=== PATIENT | female | born 1950 | race Caucasian/White ===

== ENCOUNTER 2020-07-02 12:31 | Outpatient (NON) | payer MEDICARE, OTHER, SELFPAY ==
[2020-07-02 23:21] LABS: SARS-CoV-2 RNA PCR Negative
== END 2020-07-02 12:32 ==
LOC: ANHCOVIDDT 12:36
PROVIDERS: Visit Provider Family Medicine
DX: R50.9 Fever, unspecified (principal); Z20.828 Contact with and (suspected) exposure to other viral communicable diseases
CPT/HCPCS: 87635; C9803; U0003

== ENCOUNTER 2020-07-10 07:00 | Outpatient (NON) | payer MEDICARE, OTHER, SELFPAY ==
[2020-07-11 01:24] LABS: SARS-CoV-2 RNA PCR Negative
== END 2020-07-10 07:01 ==
PROVIDERS: Visit Provider Family Medicine
DX: R05 Cough (principal); R50.9 Fever, unspecified; Z20.828 Contact with and (suspected) exposure to other viral communicable diseases
CPT/HCPCS: 87635; C9803; U0003

== ENCOUNTER 2020-12-22 10:30 | Outpatient (CLI) | payer MEDICARE, SELFPAY ==
--- NOTE | ~2020-12-22 | MM_ITS ---
EXAMINATION: MM screening [facility] BI w irene HISTORY: Screening TECHNIQUE: Craniocaudal and mediolateral oblique 3-D tomosynthesis images were obtained and synthetic 2-D images were generated. CAD analysis was submitted and interpreted. COMPARISON: Comparison to multiple prior studies sequentially, with oldest reviewed study dated 09/2012. BREAST PARENCHYMAL COMPOSITION: There are scattered areas of fibroglandular density. FINDINGS: There are benign bilateral breast calcifications. There is no evidence of suspicious mass, calcification, or architectural distortion to suggest malignancy in either breast. There has been no suspicious interval change. IMPRESSION: 1. No mammographic evidence of malignancy. 2. Recommend routine screening mammography in one year. BI-RADS Category 2: Benign finding(s). Reviewed, dictated and finalized at location A.
== END 2020-12-22 10:31 | disposition home or self-care (01) ==
PROVIDERS: PCP Family Medicine; Visit Provider Family Medicine
DX: Z12.31 Encounter for screening mammogram for malignant neoplasm of breast (principal)
CPT/HCPCS: 77063; 77067

== ENCOUNTER → 2021-03-15 02:52 | Outpatient (CLI) | payer MEDICARE, SELFPAY ==
[2021-03-15 19:42] LABS: SARS-CoV-2 RNA PCR Negative
== END ==
PROVIDERS: PCP Family Medicine; Visit Provider Physician Assistant
DX: R68.89 Other general symptoms and signs (principal); Z20.822 Contact with and (suspected) exposure to COVID-19
CPT/HCPCS: C9803; U0003; U0005

== ENCOUNTER 2022-03-01 13:57 | Outpatient (CLI) | payer MEDICARE, SELFPAY ==
--- NOTE | ~2022-03-01 | CT_ITS ---
EXAMINATION: CT abdomen pelvis wo con DATE: 03/01/2022 14:22 INDICATION: Low abdominal pain/discomfort, diarrhea TECHNIQUE: Computed tomography (CT) of the abdomen and pelvis was performed without intravenous contr ast. Automated exposure control and iterative reconstruction technique were employed. Exam dose: 403 .80 mGy-cm total exam DLP. COMPARISON: 10/08/2006 CT abdomen FINDINGS: The lung bases are clear. Normal heart size. No pericardial or pleural effusion. Very small sliding hiatal hernia. There are several hepatic cysts measuring up to approximately 2.1 cm maximal dimension. The gallbladd er is present. No gallbladder wall thickening or pericholecystic fluid or fat stranding. No bile duct or pancreatic duct dilatation. No pancreatic mass lesion or calcification. Normal splenic size. Normal morphology of the adrenal glands. Approximately 1.4 cm upper pole left renal cyst. No urinary tract calculus or hydroureteronephrosis. The urinary bladder is relatively evacuated and unremarkable. Small retroverted uterus. No adnexal ma ss lesion. Normal appendix. Diverticulosis of the colon, primarily on the left colon can with minimal involvement of the right co chapo. No CT evidence of diverticulitis. No bowel obstruction, bowel wall thickening, pneumatosis or intraperitoneal free air. Normal caliber of the abdominal aorta. No intraperitoneal or retroperitoneal or pelvic mass lesion or adenopathy or ascites. Small fat-containing umbilical hernia. No suspicious osteolytic or osteoblastic lesions are noted. There is grade 1 anterolisthesis at L4-5. IMPRESSION: Hepatic cysts Left renal 1.4 cm cyst Normal appendix Diverticulosis of the colon; no evidence of diverticulitis Reviewed, dictated and finalized at Location A. Reviewed, dictated and finalized at location B.
== END 2022-03-01 13:58 | disposition home or self-care (01) ==
PROVIDERS: PCP Family Medicine; Visit Provider Family Medicine
DX: R10.9 Unspecified abdominal pain (principal); K76.89 Other specified diseases of liver; N28.1 Cyst of kidney, acquired; K57.90 Diverticulosis of intestine, part unspecified, without perforation or abscess without bleeding
CPT/HCPCS: 74176

== ENCOUNTER 2022-08-17 01:56 | Day surgery (SDC) | payer MEDICARE, SELFPAY ==
[2022-08-07 08:39] VITALS: BMI 27.8
[2022-08-17 10:04] VITALS: BP 141/63; PULSE 77; RESP 18; TEMP 36.3; O2SAT 98; BMI 27.6
--- NOTE | 2022-08-17 10:26 | P.PNAN_ITS ---
Anes - Initial Pre Proc Eval Procedure: Operation Date: 08/17/22 11:00 Proposed Procedures p Colonoscopy - Hleder Gallagher MD Date/Time: 08/17/22 10:26 Surgeon: Helder Gallagher MD Pre Op Diagnosis: diarrhea Patient Data Age: 72 Gender: F Height: 1.63 m Weight: 73.1 kg Last Vital Signs Temp 97.4 F L 08/17/22 10:04 Pulse 77 08/17/22 10:04 Resp 18 08/17/22 10:04 BP 141/63 H 08/17/22 10:04 Pulse Ox 98 08/17/22 10:04 O2 Del Method Room Air 08/17/22 10:04 Allergies Allergy/AdvReac Type Severity Reaction Status Date / Time acetaminophen AdvReac Headache Verified 08/17/22 10:15 [From Tylenol-Codeine #3] codeine AdvReac Headache Verified 08/17/22 10:15 [From Tylenol-Codeine #3] Home Medications Medication Instructions Recorded Confirmed Type acyclovir 400 mg tablet 400 mg PO DAILY PRN Cold Sores 07/10/22 08/17/22 History amlodipine 5 mg tablet 5 mg PO DAILY 07/10/22 08/17/22 History eluxadoline 75 mg tablet (Viberzi) 75 mg PO BID 07/10/22 08/17/22 History enalapril maleate 20 mg tablet 20 mg PO DAILY 07/10/22 08/17/22 History lansoprazole 15 mg capsule,delayed 15 mg PO DAILY 07/10/22 08/17/22 History release rosuvastatin 10 mg tablet 10 mg PO DAILY 07/10/22 08/17/22 History triamcinolone acetonide 55 mcg 1 spray intranasal DAILY 07/10/22 08/17/22 History nasal spray aerosol (Nasacort Allergy) Patient hx anesthesia problems: none Family hx anesthesia problems: none Results Review: All pre-operative results and documents have been reviewed as part of the pre- operative evaluation. FOR[facility]LY [facility] Past Medical History Medical History Chronic sinusitis Hx of uterine prolapse Hyperlipidemia Hypertension Surgical History Surgical History Hx of tubal ligation Family History Family History Mother Family history of malignant neoplasm of breast in first degree relative Social History Social History Smoking status: Never smoker Alcohol intake: never Substance use: never Substance use type: does not use Living arrangements: alone Spiritual care concerns: No Anes - Eval Final PreProcedure Day of Procedure 08/17/22 10:26 Patient weight: normal Heart: regular rate and rhythm Lungs: clear to auscultation Airway: Mallampati scale class II Neurological: alert and oriented Last oral intake: >/= 8 hours ASA classification: II Emergent: no Anesthetic plan: proceed Anesthesia type and monitoring: general GIVS and standard monitoring Results Review: All pre-operative results and documents have been reviewed as part of the pre- operative evaluation. Informed Consent: The patient's anesthetic plan and its attendant risks and benefits were discussed with the patient/family/POA. Questions were solicited and answers provided to the satisfaction of the patient/family/POA.
[2022-08-17] MEDS: LACTATED RINGERS 1,000 ML 150 ML IV CONT (10:28)
--- NOTE | 2022-08-17 10:30 | PM.HPGS ---
History of Present Illness History of Present Illness Consent: Risks, benefits, and alternatives have been discussed and questions answered. Patient agrees to proceed with procedure. Chief complaint: diarrhea Narrative: Raegan Wiseman is a 72 year old female Who ?has been having a great deal of diarrhea.? She had stool cultures done which were negative.? Prior to that she had had cataract surgery and each cataract required antibiotics for 3 weeks.? She states that she was negative for C diff. That was in January.? 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 She is on Viberzi, 75 mg twice a day and also takes Imodium, up to 4 times a day.? Her bowel movements have decreased in frequency but only because she continues to take these medications she in fact was recently prescribed dicyclomine, 10 mg b.i.d. she cannot tell if that helped.? She was also given amitriptyline, 25 mg but only took a few days.? Review of Systems Review of Systems: All systems reviewed & are unremarkable except as noted in HPI and below PMFSH Past Medical History Medical History Chronic sinusitis Hx of uterine prolapse Hyperlipidemia Hypertension Surgical History Surgical History Hx of tubal ligation Family History Family History Mother Family history of malignant neoplasm of breast in first degree relative Social History Social History Smoking status: Never smoker Alcohol intake: never Substance use: never Substance use type: does not use Living arrangements: alone Spiritual care concerns: No Meds Home Medications and Allergies Home Medications Medication Instructions Recorded Confirmed Type acyclovir 400 mg tablet 400 mg PO DAILY PRN Cold Sores 07/10/22 08/17/22 History amlodipine 5 mg tablet 5 mg PO DAILY 07/10/22 08/17/22 History eluxadoline 75 mg tablet (Viberzi) 75 mg PO BID 07/10/22 08/17/22 History enalapril maleate 20 mg tablet 20 mg PO DAILY 07/10/22 08/17/22 History lansoprazole 15 mg capsule,delayed 15 mg PO DAILY 07/10/22 08/17/22 History release rosuvastatin 10 mg tablet 10 mg PO DAILY 07/10/22 08/17/22 History triamcinolone acetonide 55 mcg 1 spray intranasal DAILY 07/10/22 08/17/22 History nasal spray aerosol (Nasacort Allergy) Allergies Allergy/AdvReac Type Severity Reaction Status Date / Time acetaminophen AdvReac Headache Verified 08/17/22 10:15 [From Tylenol-Codeine #3] codeine AdvReac Headache Verified 08/17/22 10:15 [From Tylenol-Codeine #3] Vital Signs Vital Signs - 24 hr 08/17/22 10:04 Temperature 36.3 C L Pulse Rate 77 Respiratory Rate 18 Blood Pressure 141/63 H Pulse Oximetry 98 Oxygen Delivery Room Air Exam Const: General: alert Orientation/consciousness: patient oriented x3 Resp: Auscultation: clear to auscultation bilaterally Cardio: Rate: regular rate Rhythm: regular rhythm GI: GI Palp: Yes Soft to palpation and No Tenderness to palpation present (GI) Neuro: General: patient oriented x3 Assessment and Plan Assessment and plan (1) Chronic diarrhea: Code(s): K52.9 - Noninfective gastroenteritis and colitis, unspecified Status: Acute Assessment and Plan: Colonoscopy with possible biopsy or polypectomy or cautery or injection of substances.
[2022-08-17 11:19] VITALS: BP 98/54; PULSE 66; RESP 17; O2SAT 97
[2022-08-17 11:29] VITALS: BP 104/55; PULSE 66; RESP 18; O2SAT 95
[2022-08-17 11:39] VITALS: BP 130/70; PULSE 60; RESP 16; O2SAT 100
== END 2022-08-17 11:47 | disposition home or self-care (01) ==
PROVIDERS: PCP Family Medicine; Visit Provider Internal Medicine Gastroenterology
PROC: 0DJD8ZZ Inspection of Lower Intestinal Tract, Via Natural or Artificial Opening Endoscopic (ICD-10-PCS; CPT 45378; principal; 2022-08-17 11:00)
DX: K52.831 Collagenous colitis (principal); K64.8 Other hemorrhoids; K57.30 Diverticulosis of large intestine without perforation or abscess without bleeding; I10 Essential (primary) hypertension; E78.5 Hyperlipidemia, unspecified
CPT/HCPCS: 45380; 88305; J2704; J7120

== ENCOUNTER 2023-10-16 14:10 | Outpatient (CLI) | payer MEDICARE, SELFPAY ==
--- NOTE | ~2023-10-16 | MM_ITS ---
EXAMINATION: MM screening [facility] BI w irene HISTORY: Screening mammogram TECHNIQUE: Craniocaudal and mediolateral oblique 3-D tomosynthesis images were obtained and synthetic 2-D images were generated. CAD analysis was submitted and interpreted. COMPARISON: 12/22/2020, 03/11/2017 bilateral screening mammogram examinations BREAST PARENCHYMAL COMPOSITION: There are scattered areas of fibroglandular density. FINDINGS: Multiple bilateral benign calcifications. There is no evidence of suspicious mass, calcific ation, or architectural distortion to suggest malignancy in either breast. There has been no suspicio us interval change. IMPRESSION: 1. No mammographic evidence of malignancy. 2. Recommend routine screening mammography in one year. BI-RADS Category 2: Benign finding(s). Reviewed, dictated and finalized at location A.
== END 2023-10-16 14:11 | disposition home or self-care (01) ==
PROVIDERS: PCP Family Medicine; Visit Provider Physician Assistant
DX: Z12.31 Encounter for screening mammogram for malignant neoplasm of breast (principal)
CPT/HCPCS: 77063; 77067

== ENCOUNTER 2025-01-27 09:25 | Emergency (ER) | payer MEDICARE, SELFPAY ==
--- NOTE | ~2025-01-27 | XR_ITS ---
EXAM/ PROCEDURE: [id number] - 01/27/2025 9:53 CDT HISTORY: 74 years old Female with LT ant/upper rib pain jumped on by a dog 4x days ago nonsmok COMPARISON: None available TECHNIQUE: 5 view(s) FINDINGS/ IMPRESSION: There are no fractures or dislocations.Joint space narrowing, subchondral sclerosis, subchondral cyst formation and osteophyte formation, compatible with mild osteoarthritis. S-shaped curvature of the s pine is seen. Atherosclerotic calcifications are seen. Reviewed, dictated and finalized at location A.
--- OUTSIDE RECORDS SUMMARY | 2025-01-27 09:30 | XMS_ITS | Clinical Summary ---
Author Organization [facility] Address [address] [place] [id number] Care Team Providers Care Spa Technician Name Role Phone Unavailable Primary Care Provider Unavailabl e Social History Tobacco Use Types Packs/Day Years Used Date Smoking Tobacco: Never Assessed Comments Unknown Sex and Gender Information Value Date Recorded Sex Assigned at Not on file Legal Sex Female 8:19 PM CDT Gender Identity Not on file Sexual Orientation Not on file Plan of Treatment Health Maintenance Due Date Last Done Comments Hepatitis C 1966 DTaP, Tdap and Td Vaccines ( 1 - Tdap) 1967 Pneumococcal Vaccine: 50+ Ye ars (1 of 1 - PCV) 1998 Zoster Vaccines (1 of 2) 1998 Dexa Scan (General) 2013 RSV Immunization or 60+ Years (1 - 1-dose 75+ series) 2023 COVID-19 Vaccine ( - 2023-2 5 season) 2024 Meningococcal B Vaccine Aged Out No l onger eligible based on patient's age to complete this topic Meningococcal Vaccine Aged Out No chapo ludy eligible based on patient's age to complete this topic RSV Immunizations Under 20 Months Aged Out No longer eligible based on patient's age to complete this topic
[2025-01-27 09:34] VITALS: BP 148/67; PULSE 93; RESP 16; TEMP 36.6; O2SAT 100
--- NOTE | 2025-01-27 09:53 | ED.GENADULT ---
HPI - General Adult General Chief complaint: Extremity Injury, Upper Stated complaint: LT Shoulder Pain History of Present Illness HPI narrative: Raegan Wiseman is a 74 y/o female who presents with reports of being jumped on by a family members dog up to her upper left chest area 4 days ago. SHe states it hurt when it happened but she thought it was getting better but the last couple days feels more pain to the left upper and under arm area. Pain reproducible with palpation and movement. No SOB Related Data Home Medications ?Medication ?Instructions ?Recorded ?Confirmed ?Last Taken ?Type calcium carbonate (Calcium 500) 500 mg PO DAILY 03/27/23 09/22/24 Unknown History tirzepatide 2.5 mg/0.5 mL 2.5 mg subcut WEEKLY 03/17/24 01/27/25 Unknown History subcutaneous pen injector (Mounjaro) triamcinolone acetonide 55 mcg 2 spray intranasal DAILY 03/17/24 09/22/24 Unknown History nasal spray aerosol (Nasacort Allergy) esomeprazole magnesium 20 mg 20 mg PO DAILY 09/22/24 09/22/24 Unknown History capsule,delayed release (Nexium 24HR) tirzepatide (weight loss) 5 mg/0.5 mg subcut 01/27/25 Unknown History mL subcutaneous pen injector (Zepbound) Allergies Allergy/AdvReac Type Severity Reaction Status Date / Time codeine (From AdvReac Headache Verified 01/27/25 10:00 Tylenol-Codeine #3) Review of Systems Review of Systems: All systems reviewed & are unremarkable except as noted in HPI and below PMFSH Past Medical History Medical History Generalized anxiety disorder History of herpes labialis Pure hypercholesterolemia, unspecified CC (collagenous colitis) Weight loss Hx of uterine prolapse Chronic sinusitis Hypertension Surgical History Surgical History History of hysterectomy 2014 History of bladder surgery 2014 Hx of tubal ligation 1979 Family History Family History Mother Family history of malignant neoplasm of breast in first degree relative Father Lung cancer Sibling COPD (chronic obstructive pulmonary disease) Social History Social History Smoking status: Never smoker Alcohol intake: never Substance use: never Substance use type: does not use Do You Feel Safe in your Home?: Yes Lack of Transportation: No Lack of Food: Never True Current Housing: I Have Housing Concerned About Future Housing: No Difficulty Paying Gas/Electric Bills: No Difficulty Paying for Meds: No Currently Unemployed: No Education: High School Diploma/GED Difficulty w/ Childcare or Family Care: No Living arrangements: alone Occupation/Education: retired Gender identity (if verbalized by the patient): Female Sexual Orientation (if Verbalized by the Patient): Straight or Heterosexual Spiritual care concerns: No Exam Narrative: GENERAL: Well-appearing, well-nourished, and in no acute distress. HEAD: Normocephalic, atraumatic. EYES: PERRLA and EOMI. ENT: Nares clear, no rhinorrhea or epistaxis. Mucous membranes moist. Oropharynx without tonsillar hypertrophy exudate or other lesions. NECK: Supple. No adenopathy or masses. No carotid bruits or JVD CHEST: Clear to auscultation. No respiratory distress. No wheezes rales or rhonchi- Left sided mild ecchymosis to the upper left chest wall area HEART: Regular rate and rhythm. No murmur heard. Normal peripheral pulses. ABDOMEN: Soft, nontender, nondistended, normal active bowel sounds. EXTREMITIES: Normal range of motion. No edema. SKIN: Warm, dry, no rash. NEURO: No focal deficits. Alert and oriented x3. PSYCH: Normal mood and affect. Course Course Level of Care: Express Care Visit Vital Signs Vital signs: Vital Signs Temperature 36.6 C 01/27/25 09:34 Pulse Rate 93 01/27/25 09:34 Respiratory Rate 16 01/27/25 09:34 Blood Pressure 148/67 H 01/27/25 09:34 Pulse Oximetry 100 01/27/25 09:34 Oxygen Delivery Room Air 01/27/25 09:34 Temperature 36.6 C 01/27/25 09:34 Pulse Rate 93 01/27/25 09:34 Respiratory Rate 16 01/27/25 09:34 Blood Pressure 148/67 H 01/27/25 09:34 Pulse Oximetry 100 01/27/25 09:34 Oxygen Delivery Room Air 01/27/25 09:34 Medical Decision Making MDM Narrative Medical decision making narrative: 74 y/o status post 4 days of having a dog jump up on her hitting her left upper chest. Comes in with continued pain to area + ecchymosis to the upper left chest wall Pain reproducible with palpation and movement Lung sounds clear throughout, RR even unlabored Rates pain at a 4/10 concern for : rib fx/ lung contusion Plan to check an XR XR : There are no fractures or dislocations. Plan to d/c with continued BECK therapy may continue Motrin follow up with PCP in 5-7 days to ensure improving Strict return precaution to go to the ER for any worsening or continued symptoms Medical Records Medical records reviewed: Yes I reviewed the external patient's medical records. Vital Signs Vital Signs: Vital Signs Temperature 36.6 C 01/27/25 09:34 Pulse Rate 93 01/27/25 09:34 Respiratory Rate 16 01/27/25 09:34 Blood Pressure 148/67 H 01/27/25 09:34 Pulse Oximetry 100 01/27/25 09:34 Oxygen Delivery Room Air 01/27/25 09:34 Temperature 36.6 C 01/27/25 09:34 Pulse Rate 93 01/27/25 09:34 Respiratory Rate 16 01/27/25 09:34 Blood Pressure 148/67 H 01/27/25 09:34 Pulse Oximetry 100 01/27/25 09:34 Oxygen Delivery Room Air 01/27/25 09:34 vitals reviewed by me Discharge Plan Discharge Clinical Impression: Chest wall contusion Qualifiers: Encounter type: initial encounter Laterality: left Qualified Code(s): S20.212A - Contusion of left front wall of thorax, initial encounter Patient Disposition: Home Condition: Stable Instructions: Antibiotic Form, P.R.I.C.E. Treatment (ED) Additional Instructions: Continue to rest/ Ice area of pain Continue Ibuprofen for pain as well This should start to improve and heal If you develop any worsening symptoms, increased pain, shortness of breath then proceed to the ER Patient Language: Kyrgyz Prescriptions: No Action Zepbound 5 mg/0.5 mL pen injector SUBCUT esomeprazole magnesium [Nexium 24HR] 20 mg capsule,delayed release(DR/EC) 20 mg PO DAILY amlodipine 5 mg tablet 5 mg PO DAILY Qty: 90 1RF calcium carbonate [Calcium 500] 500 mg calcium (1,250 mg) tablet,chewable 500 mg PO DAILY Mounjaro 2.5 mg/0.5 mL pen injector 2.5 mg subcut WEEKLY triamcinolone acetonide [Nasacort Allergy] 55 mcg aerosol,spray 2 spray intranasal DAILY Rx Instructions: administer into each nostril acyclovir 400 mg tablet 400 mg PO DAILY Qty: 90 1RF enalapril maleate 20 mg tablet See Rx Instructions .ROUTE .COMPLEX Qty: 90 1RF Dose Instruction: TAKE 1 TABLET BY MOUTH EVERY DAY Rx Instructions: TAKE 1 TABLET BY MOUTH EVERY DAY rosuvastatin 10 mg tablet See Rx Instructions .ROUTE .COMPLEX Qty: 90 1RF Dose Instruction: TAKE 1 TABLET BY MOUTH EVERY DAY Rx Instructions: TAKE 1 TABLET BY MOUTH EVERY DAY meclizine 25 mg tablet 25 mg PO BID PRN (Reason: dizziness) Qty: 20 0RF Follow-up/Referrals: Iggy Lucia MD [Primary Care Provider] - 1 Week Time of Disposition: 10:25
== END 2025-01-27 10:35 | disposition home or self-care (01) ==
PROVIDERS: Emergency Provider Nurse Practitioner Family; PCP Family Medicine
DX: S20.212A Contusion of left front wall of thorax, initial encounter (principal); W54.8XXA Other contact with dog, initial encounter; E78.00 Pure hypercholesterolemia, unspecified; I10 Essential (primary) hypertension
CPT/HCPCS: 71101; 99213; G0463